=== PATIENT | male | born 1980 | race American Indian/Alaskan Native ===

== ENCOUNTER 2018-05-18 13:25 | Outpatient (CLI) | payer OTHER ==
--- NOTE | 2018-05-18 14:40 | Ultrasound Report ---
ULTRASOUND TESTICULAR DOPPLER COMPLETE History: Inflammatory disorders of scrotum, left scrotal pain and swelling. Technique: Trans-scrotal ultrasound with spectral doppler interrogation. Findings: The left epididymis is enlarged, heterogeneous and demonstrates hyperemia on color Doppler interrogation consistent with left epididymitis. A small left hydrocele is also identified. The right epididymis is unremarkable. Both testes are normal size, contour and echotexture. No varicocele. No mass or pathologic calcifications. Spectral Doppler waveforms demonstrate arterial flow to both testes. IMPRESSION: Findings consistent with acute left epididymitis. Small left hydrocele.
== END 2018-05-18 13:26 | disposition home or self-care (01) ==
LOC: US 13:25
PROVIDERS: ATTEND General Practice
DX: N49.2 Inflammatory disorders of scrotum (principal); N43.3 Hydrocele, unspecified; F17.210 Nicotine dependence, cigarettes, uncomplicated
CPT/HCPCS: 93975